=== PATIENT | female | born 1985 | race Two or more races ===

== ENCOUNTER → 2023-05-30 | Emergency (ER) | payer OTHER ==
[~2023-05-30] VITALS: Ht 165.1 cm; Wt 63.5 kg
[~2023-05-30] MED LIST: OZEMPIC0.25 MG/02
== END | disposition left against medical advice (07) ==
LOC: ER 01:46
DX: Z53.21 Procedure and treatment not carried out due to patient leaving prior to being seen by health care provider (principal)